=== PATIENT | female | born 1925 | race Caucasian/White ===

== ENCOUNTER 2017-05-05 20:48 | Emergency (ER) | payer OTHER ==
[~2017-05-05] VITALS: Ht 172.7 cm; Wt 62.0 kg
[~2017-05-05 20:48] MED LIST: AMLO2.5T PO; ASPEC81 PO; CLC100 PO; CLOP1TAB15 PO; DYZ PO; MRLP17 PO; POTA-327 PO; SIMV40TA2 PO; TRIA0.1C20; [UNRECOGNIZED DRUG - OTHER]
[2017-05-05 20:51] VITALS: TEMP 36.3; Ht 172.7 cm; Wt 62.0 kg
[2017-05-05 21:37] LABS: BASO % 0.3 %; BASO ABS # 0.02 K/uL (0-0.2); EOS % 0.9 %; EOS ABS # 0.06 K/uL (0-0.5); HEMATOCRIT 44.2 % (37-47); HEMOGLOBIN 14.5 g/dL (12.0-16.0); IG# 0.01 K/uL (0.00-0.02); LYMPH % 17.4 %; LYMPH ABS # 1.13 K/uL (1.2-3.4); MEAN CELL VOLUME 95.9 fL (80-100); MEAN CORPUSCULAR HEMOGLOBIN 31.5 pg (25-34); MEAN CORPUSCULAR HGB CONC 32.8 g/dl (32-36); MEAN PLATELET VOLUME 11.2 fL (7.4-10.4); MONO % 6.2 %; NEUT ABS # 4.87 K/uL (1.4-6.5); PLATELET COUNT 161 K/uL (130-400); RED CELL DISTRIBUTION WIDTH CV 14.1 % (11.5-14.5); RED CELL DISTRIBUTION WIDTH SD 49.3 fL (36.4-46.3); WHITE BLOOD COUNT 6.49 K/uL (4.8-10.8)
--- NOTE | 2017-05-05 21:41 | DIAGNOSTIC IMAGING REPORT ---
CT HEAD WITHOUT CONTRAST (CT) CLINICAL HISTORY: left foot numbness COMPARISON STUDY: No previous studies for comparison. TECHNIQUE: Axial CT of the brain is performed from the vertex to the skull base. IV contrast was not administered for this examination. A dose lowering technique was utilized adhering to the principles of ALARA. CT DOSE: 709.48 mGy.cm FINDINGS: No intra or extra-axial mass lesions are visualized. There is no CT evidence of acute cortical infarction. There is no evidence of midline shift. There is no acute hemorrhage. No calvarial fractures are visualized. There are minor white matter hypodensities likely on a small vessel basis. There is no evidence of pathologic ventricular dilatation. There is a left maxillary sinus air-fluid level. There are multiple opacified left-sided ethmoid air cells. There is mild mucosal disease in the left frontal sinus. There is mild mucosal thickening within the sphenoid. IMPRESSION: 1. Inflammatory changes within the paranasal sinuses with a left maxillary sinus air-fluid level and partial opacification left ethmoid. 2. Otherwise no acute intracranial findings Electronically signed by: Jeff Galvan M.D. 05/05/2017 9:39 PM Dictated Date/Time: 05/05/2017 9:38 PM
--- NOTE | 2017-05-05 21:46 | EMERGENCY ROOM VISIT NOTE ---
History Report prepared by Shalonda: Krystle Painting Under the Supervision of: Dr. Simba Siddiqi M.D. First contact with patient: 21:01 Chief Complaint: FOOT PAIN Stated Complaint: NO FEELING IN LT FOOT History of Present Illness The patient is an 89 year old female who presents to the Emergency Room with complaints of persistent left leg pain starting 1 hour ago. According to the patient's son, she started complaining of left calf and ankle pain around 1 hour ago. She also reports numbness in her left foot and toes. She has never had problems like this before. The patient was able to go out shopping with her son yesterday. She denies any chest pain, SOB, or fever. She was recently treated for shingles. She does not have a history of atrial fibrillation or diabetes. She has a history of dementia. Source of History: patient, family Onset: 1 hour ago Position: leg (left) Quality: other (pain) Timing: other (persistent) Associated Symptoms: + numbness, No fevers, No chest pain, No SOB Review of Systems See HPI for pertinent positives & negatives. A total of 10 systems reviewed and were otherwise negative. Past Medical & Surgical Medical Problems: (1) Dementia Old medical records were reviewed. Nurse's notes were reviewed and I agree with. Family History Noncontributory secondary to age. Social History Smoking Status: Never Smoker Marital Status: Occupation Status: retired Current/Historical Medications No Active Prescriptions or Reported Meds Allergies Coded Allergies: Amitriptyline (Verified Allergy, Unknown, VISUAL [employer]URBANCES, 05/05/17) Aspirin (Verified Allergy, Unknown, 12/05/09) NSAIDs (Verified Allergy, Unknown, unknown, 05/06/17) Physical Exam Vital Signs Date Time Temp Pulse Resp B/P (MAP) Pulse Ox O2 Delivery O2 Flow Rate FiO2 05/06/17 00:28 117 18 86/80 90 Room Air 05/05/17 23:55 104 20 134/97 91 Room Air 05/05/17 23:11 99 20 152/87 93 Room Air 05/05/17 21:27 94 Room Air 05/05/17 21:25 105 20 139/88 94 Room Air 05/05/17 21:07 124 05/05/17 20:51 36.3 107 18 163/72 97 Room Air Physical Exam General: Older female who has baseline dementia, hard of hearing, complaining of left foot pain. HEENT: Normal cephalic atraumatic. Pupils are equal round and reactive to light. Extraocular movements are intact. Oropharynx is pink with moist mucous membranes. No swelling of the mouth lips or tongue. Neck: Supple with a midline trachea. No meningeal signs or stiffness, no JVD or bruits. No Stridor. Chest: Clear to auscultation bilaterally. No wheezes or rhonchi. No increased work of breathing. Heart: Frequent ectopy with bigeminy seen on the monitor. Abdomen: Soft nontender, nondistended without rebound guarding or rigidity. Extremities: Mild left calf tenderness. No swelling. Left foot feels cooler than the right. There is a palpable pulse, but questionably diminished. Normal motor and sensation except for tingling in the left foot. Spine/Back. Non tender to palpation. No CVA tenderness Skin: Good turgor without rashes. Neurologic exam: Cranial nerves two through 12 are intact. Motor and sensation are intact and symmetrical throughout. Medical Decision & Procedures ER Provider Diagnostic Interpretation: Radiology results as stated below per my review and radiologist interpretation: CT HEAD WITHOUT CONTRAST (CT) CLINICAL HISTORY: left foot numbness COMPARISON STUDY: No previous studies for comparison. TECHNIQUE: Axial CT of the brain is performed from the vertex to the skull base. IV contrast was not administered for this examination. A dose lowering technique was utilized adhering to the principles of ALARA. CT DOSE: 709.48 mGy.cm FINDINGS: No intra or extra-axial mass lesions are visualized. There is no CT evidence of acute cortical infarction. There is no evidence of midline shift. There is no acute hemorrhage. No calvarial fractures are visualized. There are minor white matter hypodensities likely on a small vessel basis. There is no evidence of pathologic ventricular dilatation. There is a left maxillary sinus air-fluid level. There are multiple opacified left-sided ethmoid air cells. There is mild mucosal disease in the left frontal sinus. There is mild mucosal thickening within the sphenoid. IMPRESSION: 1. Inflammatory changes within the paranasal sinuses with a left maxillary sinus air-fluid level and partial opacification left ethmoid. 2. Otherwise no acute intracranial findings Electronically signed by: Jeff Galvan M.D. 05/05/2017 9:39 PM Dictated Date/Time: 05/05/2017 9:38 PM L ART DOP DUPLEX LWR EXT UNI CLINICAL HISTORY: Left leg pain COMPARISON STUDY: No previous studies for comparison. FINDINGS: No flow is visualized in left common femoral or profunda arteries. There is no flow within the superficial femoral artery. There is no flow visualized within the popliteal artery. A prominent popliteal artery thrombus was visualized. No flow is visualized in the posterior tibial peroneal or anterior tibial arteries. IMPRESSION: No arterial flow is visualized within the left lower extremity, a finding consistent with acute arterial occlusion. Electronically signed by: Jeff Galvan M.D. 05/05/2017 11:01 PM Dictated Date/Time: 05/05/2017 10:59 PM ULTRASOUND L VENOUS DOPP LOWER EXT UNILAT CLINICAL HISTORY: Left leg pain and swelling. COMPARISON STUDY: No previous studies for comparison. FINDINGS: No thrombus is visualized in left common femoral or superficial femoral vein. There is no thrombus within the left popliteal vein. There is a noncompressible left peroneal vein consistent with peroneal vein DVT. There is also thrombus within a popliteal fossa vein possibly a sural branch. IMPRESSION: 1. Acute calf DVT involving the peroneal vein 2. Thrombus is also visualized within a superficial vein within the popliteal fossa Electronically signed by: Jeff Galvan M.D. 05/05/2017 10:45 PM Dictated Date/Time: 05/05/2017 10:42 PM Laboratory Results 05/05/17 21:20 Red Blood Count 4.61, Mean Corpuscular Volume 95.9, Mean Corpuscular Hemoglobin 31.5, Mean Corpuscular Hemoglobin Concent 32.8, Mean Platelet Volume 11.2, Neutrophils (%) (Auto) 75.0, Lymphocytes (%) (Auto) 17.4, Monocytes (%) (Auto) 6.2, Eosinophils (%) (Auto) 0.9, Basophils (%) (Auto) 0.3, Neutrophils # (Auto) 4.87, Lymphocytes # (Auto) 1.13, Monocytes # (Auto) 0.40, Eosinophils # (Auto) 0.06, Basophils # (Auto) 0.02 05/05/17 21:20 Test 05/05/17 21:20 05/05/17 21:33 White Blood Count 6.49 K/uL (4.8-10.8) Red Blood Count 4.61 M/uL (4.2-5.4) Hemoglobin 14.5 g/dL (12.0-16.0) Hematocrit 44.2 % (37-47) Mean Corpuscular Volume 95.9 fL (80-100) Mean Corpuscular Hemoglobin 31.5 pg (25-34) Mean Corpuscular Hemoglobin Concent 32.8 g/dl (32-36) Platelet Count 161 K/uL (130-400) Mean Platelet Volume 11.2 fL (7.4-10.4) Neutrophils (%) (Auto) 75.0 % Lymphocytes (%) (Auto) 17.4 % Monocytes (%) (Auto) 6.2 % Eosinophils (%) (Auto) 0.9 % Basophils (%) (Auto) 0.3 % Neutrophils # (Auto) 4.87 K/uL (1.4-6.5) Lymphocytes # (Auto) 1.13 K/uL (1.2-3.4) Monocytes # (Auto) 0.40 K/uL (0.11-0.59) Eosinophils # (Auto) 0.06 K/uL (0-0.5) Basophils # (Auto) 0.02 K/uL (0-0.2) RDW Standard Deviation 49.3 fL (36.4-46.3) RDW Coefficient of Variation 14.1 % (11.5-14.5) Immature Granulocyte % (Auto) 0.2 % Immature Granulocyte # (Auto) 0.01 K/uL (0.00-0.02) Prothrombin Time 11.1 SECONDS (9.0-12.0) Prothromb Time International Ratio 1.1 (0.9-1.1) Activated Partial Thromboplast Time 23.2 SECONDS (21.0-31.0) Partial Thromboplastin Ratio 0.9 Anion Gap 9.0 mmol/L (3-11) Est Creatinine Clear Calc Drug Dose 27.4 ml/min Estimated GFR () 39.9 Estimated GFR (Non- 34.4 BUN/Creatinine Ratio 17.0 (10-20) Calcium Level 8.4 mg/dl (8.5-10.1) Total Bilirubin 1.0 mg/dl (0.2-1) Direct Bilirubin 0.2 mg/dl (0-0.2) Aspartate Amino Transf (AST/SGOT) 26 U/L (15-37) Alanine Aminotransferase (ALT/SGPT) 28 U/L (12-78) Alkaline Phosphatase 76 U/L (45-117) Total Protein 6.9 gm/dl (6.4-8.2) Albumin 3.3 gm/dl (3.4-5.0) Lipase 216 U/L (73-393) Bedside Troponin I < 0.030 ng/ml (0-0.045) Laboratory studies as stated above per my review. Medications Administered Medications (Trade) Dose Ordered Sig/Adeel Route Start Time Stop Time Status Last Admin Dose Admin Heparin Sodium/ Dextrose 1 ea NOW STAT N/A 05/05/17 23:31 05/05/17 23:32 DC 05/05/17 23:31 1 EA Heparin Sodium (Porcine) (Heparin Sq 5000 Unit/0.5ml) 5,000 unit STK-MED ONCE .ROUTE 05/05/17 23:39 05/05/17 23:40 DC 05/05/17 23:50 5,000 UNIT Heparin Sodium/ Dextrose (Heparin 25,000 Unit/500ml D5W) 25,000 unit STK-MED ONCE .ROUTE 05/05/17 23:39 05/05/17 23:40 DC 05/05/17 23:51 25,000 UNIT Ondansetron HCl (Zofran Inj) 4 mg NOW STAT IV 05/05/17 23:41 05/05/17 23:50 DC 05/05/17 23:49 4 MG Morphine Sulfate (MoRPHine SULFATE INJ) 2 mg NOW STAT IV 05/05/17 23:41 05/05/17 23:50 DC 05/05/17 23:50 2 MG Morphine Sulfate (MoRPHine SULFATE INJ) 2 mg NOW STAT IV 05/06/17 00:20 05/06/17 00:21 DC 05/06/17 00:26 2 MG ECG Indication: palpitations Rate (beats per minute): 118 Rhythm: normal sinus Findings: PVC, other (frequent ectopy and bigeminy, poor baseline, wide QRS complex, no ST segment elevation) Comparison ECG Date: no prior available ED Course 2101: Past medical records reviewed. The patient was evaluated in room C8, and a complete history and physical examination were performed. 2135: The patient is at imaging. 2303: I reevaluated the patient. I discussed the results with her and her sons. 2311: I discussed the patient's case with Dr. Lynn, [facility] vascular surgery. He is not available and recommends transfer. 2313: I reevaluated the patient. I updated her family on the plan. 2326: I discussed the patient's case with Dr. Colbert, [facility] [place]. He has accepted the patient for transfer to the ED by ambulance. He recommends starting heparin. 2331: Heparin Sodium/Dextrose IV. 2340: I reevaluated the patient. I discussed the results with her family. They verbalized agreement of the plan. She will be transferred to [facility] [place] for further evaluation and management. 2341: Morphine Sulfate 2 mg IV, Zofran Inj 4 mg IV. 0020: The ambulance will be at least 2 hours. We will try to arrange for her to fly. Medical Decision Differentials include, but are not limited to; arterial insufficiency, venous insufficiency, cardiac disease, electrolyte or metabolic abnormality. This patient comes in as described above she is difficult to evaluate due to dementia. She's complained of foot pain. On exam, I'm concerned that it does feel slightly cooler than the other foot and may have slight discoloration. She has no swelling. She does complain numbness in the toe most of the great toe. I did arterial and venous ultrasound as well as a CAT scan had multiple blood testing. She does have frequent ectopy bigeminy and possibly A. fib seen on the monitor. She was given IV morphine and IV Zofran for pain. Her arterial ultrasound does show arterial occlusion of left lower extremity with no flow. Her ultrasound also shows a peroneal DVT. I discussed the seriousness of this with the family. I called Dr. Lynn however he is unavailable and not in town. In light of this, I called and talked to Dr. Colbert from [facility] and he is a vascular surgeon and he does want me to start her on a weight based IV heparin bolus and IV drip. The patient does not have any contraindications to heparin at this point no recent surgery or trauma or bleeding. He wants me to send her by [facility] ER and he will determine if she is a surgical candidate or not. The family is in agreement with the plan does consent to transfer. She will be transferred emergently to [facility] for further treatment of her arterial insufficient leg. I did try to get indolence transfer however it was going to beat 2 hours until we got an ambulance here not including the extra travel time. In light of this , I do think it is prudent to fly her. Her leg looks considerably more pale and she has a lot of discomfort. I called the transfer center and they've arranged for [facility] . the family's agreement with the plan Medication Reconcilliation Current Medication List: was personally reviewed by me Blood Pressure Screening Patient's blood pressure: Elevated blood pressure Blood pressure disposition: Elevated BP felt to be situational Consults Time Called: [phone] Consulting Physician: Dr. Lynn, [facility] vascular surgery Returned Call: [phone] I discussed the patient's case with him. He is not available and recommends transfer. Additional Consults: Time Called: 2314 Consulted Physician: Dr. Colbert, [facility] [place] vascular surgery Returned Call: [phone] Additional Comments: I discussed the patient's case with him. He has accepted the patient for transfer to the ED by ambulance. He recommends starting heparin. Impression Primary Impression: Arterial occlusion, lower extremity Additional Impressions: Deep vein thrombosis (DVT) of left lower extremity Atrial fibrillation Critical Care I have personally spent greater than 30 minutes of critical care time in the direct management of this patient. This includes bedside care, interpretation of diagnostic studies, and testing, discussion with consultants, patient, and family members, and other required patient management activities. This 30 minutes is in excess of all separately billable procedures. Scribe Attestation The scribe's documentation has been prepared under my direction and personally reviewed by me in its entirety. I confirm that the note above accurately reflects all work, treatment, procedures, and medical decision making performed by me. Departure Information Dispostion Transfer Acute Care Facility Prescriptions No Active Prescriptions or Reported Meds Referrals No Doctor, Assigned (PCP) Patient Instructions My [facility] Problem Qualifiers
[2017-05-05 21:47] LABS: INR 1.1 (0.9-1.1); PTT PATIENT 23.2 SECONDS (21.0-31.0)
[2017-05-05 21:59] LABS: ALBUMIN 3.3 gm/dl (3.4-5.0); CALCIUM 8.4 mg/dl (8.5-10.1); CREATININE 1.36 mg/dl (0.60-1.20); POTASSIUM 4.6 mmol/L (3.5-5.1)
[2017-05-05 22:02] LABS: TOTAL PROTEIN 6.9 gm/dl (6.4-8.2)
--- NOTE | 2017-05-05 22:46 | DIAGNOSTIC IMAGING REPORT ---
ULTRASOUND L VENOUS DOPP LOWER EXT UNILAT CLINICAL HISTORY: Left leg pain and swelling. COMPARISON STUDY: No previous studies for comparison. FINDINGS: No thrombus is visualized in left common femoral or superficial femoral vein. There is no thrombus within the left popliteal vein. There is a noncompressible left peroneal vein consistent with peroneal vein DVT. There is also thrombus within a popliteal fossa vein possibly a sural branch. IMPRESSION: 1. Acute calf DVT involving the peroneal vein 2. Thrombus is also visualized within a superficial vein within the popliteal fossa Electronically signed by: Jeff Galvan M.D. 05/05/2017 10:45 PM Dictated Date/Time: 05/05/2017 10:42 PM
--- NOTE | 2017-05-05 23:02 | DIAGNOSTIC IMAGING REPORT ---
L ART DOP DUPLEX LWR EXT UNI CLINICAL HISTORY: Left leg pain COMPARISON STUDY: No previous studies for comparison. FINDINGS: No flow is visualized in left common femoral or profunda arteries. There is no flow within the superficial femoral artery. There is no flow visualized within the popliteal artery. A prominent popliteal artery thrombus was visualized. No flow is visualized in the posterior tibial peroneal or anterior tibial arteries. IMPRESSION: No arterial flow is visualized within the left lower extremity, a finding consistent with acute arterial occlusion. Electronically signed by: Jeff Galvan M.D. 05/05/2017 11:01 PM Dictated Date/Time: 05/05/2017 10:59 PM
[2017-05-05] MEDS ORDERED: HEPARIN 25000 UNIT/500 ML D5W ONE (23:39)
[2017-05-05] MEDS ORDERED: HEPARIN SOD 5000 UNIT/0.5 ML CARP ONE (23:39)
[2017-05-05] MEDS ORDERED: ONDANSETRON INJ 2 MG/ML 2 ML VIAL IV STA (23:41)
[2017-05-05] MEDS ORDERED: MoRPHine SULFATE 2 MG/ML CARP IV STA (23:41)
[2017-05-06] MEDS ORDERED: MoRPHine SULFATE 2 MG/ML CARP IV STA (00:20)
[2017-05-06 00:44] VITALS: BP 144/82; PULSE 101; O2SAT 90
[2017-05-06 00:49] VITALS: O2SAT 95
== END 2017-05-06 01:10 | disposition short-term general hospital (02) ==
LOC: C.EDB 20:49 → C.EDC 05-06 01:10
DX: I74.3 Embolism and thrombosis of arteries of the lower extremities (principal); I82.402 Acute embolism and thrombosis of unspecified deep veins of left lower extremity; I48.91 Unspecified atrial fibrillation; F03.90 Unspecified dementia, unspecified severity, without behavioral disturbance, psychotic disturbance, mood disturbance, and anxiety

== ENCOUNTER → 2017-05-14 | Outpatient (CLI) | payer OTHER ==
[2017-05-14 11:54] LABS: INR 2.2 (0.9-1.1)
== END | disposition home or self-care (01) ==
LOC: C.LABCC 09:47
PROVIDERS: ATTEND Internal Medicine
DX: I48.91 Unspecified atrial fibrillation (principal); I82.402 Acute embolism and thrombosis of unspecified deep veins of left lower extremity

== ENCOUNTER → 2017-05-22 | Outpatient (CLI) | payer OTHER | END | disposition home or self-care (01) | LOC: C.LABCC 07:55 | PROVIDERS: ATTEND Internal Medicine | DX: T81.89XA Other complications of procedures, not elsewhere classified, initial encounter (principal); Y84.9 Medical procedure, unspecified as the cause of abnormal reaction of the patient, or of later complication, without mention of misadventure at the time of the procedure ==

== ENCOUNTER → 2017-05-23 | Outpatient (CLI) | payer OTHER ==
[2017-05-23 10:27] LABS: INR 1.2 (0.9-1.1)
== END ==
LOC: C.LABCC 08:36
PROVIDERS: ATTEND Internal Medicine
DX: I48.91 Unspecified atrial fibrillation (principal)

== ENCOUNTER 2017-05-28 10:21 | Emergency (ER) | payer OTHER ==
[~2017-05-28] VITALS: Ht 170.2 cm; Wt 63.5 kg
[2017-05-28 10:30] VITALS: TEMP 37; Ht 170.2 cm; Wt 63.5 kg
--- NOTE | 2017-05-28 11:01 | EMERGENCY ROOM VISIT NOTE ---
History Report prepared by Shalonda: Christa Bruce Under the Supervision of: Dr. Tanner Navarrete M.D. First contact with patient: 10:42 Chief Complaint: LEG PAIN,LEG INJURY Stated Complaint: LEG PAIN History of Present Illness The patient is a 89 year old female who presents to the Emergency Room with complaints of constant left leg numbness beginning this morning. The patient comes from [facility]. The patient has a history of thrombosis in her left leg with an arterial revascularization on 05/16/17. The patient's procedure was done in [place]. The patient reports her leg is cool to touch and more swollen than normal. She denies any pain to her leg. Source of History: patient Onset: this morning Position: leg (left) Quality: numbness Timing: constant Associated Symptoms: + numbness Review of Systems See HPI for pertinent positives & negatives. A total of 10 systems reviewed and were otherwise negative. Past Medical & Surgical Medical Problems: (1) Dementia Social History Smoking Status: Never Smoker Marital Status: Housing Status: skilled nursing Occupation Status: retired Current/Historical Medications Scheduled Metoprolol Tartrate (Lopressor) (Lopressor), 12.5 MG PO Q12 Omeprazole (Prilosec), 20 MG PO DAILY Warfarin Sodium (Coumadin), 3 MG PO ONE TIME Scheduled PRN Acetaminophen Tab (Tylenol), 650 MG PO Q6 PRN for Pain or Fever Docusate Sodium (Colace), 100 MG PO Q12 PRN for Constipation Oxycodone/Acetaminophen 5MG/325MG (Percocet 5MG/325MG), 1 TABLET PO Q4H PRN for Pain Allergies Coded Allergies: Amitriptyline (Verified Allergy, Unknown, VISUAL DISTURBANCES, 05/28/17) Aspirin (Verified Allergy, Unknown, 05/28/17) NSAIDs (Verified Allergy, Unknown, unknown, 05/28/17) Physical Exam Vital Signs Date Time Temp Pulse Resp B/P (MAP) Pulse Ox O2 Delivery O2 Flow Rate FiO2 05/28/17 15:51 89 18 134/79 96 Room Air 05/28/17 14:58 81 18 144/84 96 Room Air 05/28/17 13:46 80 18 135/87 05/28/17 13:46 77 05/28/17 12:05 86 18 112/74 98 Room Air 05/28/17 10:38 89 05/28/17 10:30 37.0 90 18 131/64 98 Room Air Physical Exam GENERAL: Patient is in no acute distress. HEENT: No acute trauma, normocephalic atraumatic, mucous membranes moist, no nasal congestion, no scleral icterus. NECK: No stridor, no adenopathy, no meningismus, trachea is midline. LUNGS: Clear to auscultation bilaterally, no wheeze, no rhonchi, breath sounds equal. HEART: 2/6 systolic murmur with an occasional extra beat, normal rate. ABDOMEN: Soft, nontender, bowel sounds positive, no hernias, no peritonitis. EXTREMITIES: Healing surgical wound to left groin and left medial calf, no cellulitis, left foot is cool, right foot is warm, left foot has very slow capillary refill at the toes. Normal motor function of the toes on the left. NEUROLOGIC: Oriented x 3, no acute motor or sensory deficits, no focal weakness. SKIN: No rash, no jaundice, no diaphoresis. Medical Decision & Procedures ER Provider Diagnostic Interpretation: Radiology results as stated below per my review and radiologist interpretation: LEFT LOWER EXTREMITY VENOUS DOPPLER FINDINGS: No change in the thrombosed superficial vein within the left popliteal fossa. There is also persistent thrombus within the left peroneal vein, unchanged. No additional sites of thrombus identified within the left lower extremity deep venous systems. IMPRESSION: 1. No change compared to the prior study. 2. Left peroneal vein thrombosis persists. 3. Thrombosed superficial vein within the left popliteal fossa is again noted. Electronically signed by: Jakub Islas M.D. DOPPLER ULTRASOUND LEFT LOWER EXTREMITY ARTERIAL FINDINGS: No flow is identified from the left common femoral artery through the [id number] left superficial femoral artery. There is minimal focal reconstitution in the distal left superficial femoral artery with thready flow. Velocities within the distal superficial femoral artery measure up to 6 cm/s and the arterial waveform is monophasic. There is monophasic flow within the popliteal artery with velocities measuring up to 7 cm/s. Thready flow was seen within the posterior tibial artery with velocities measuring up to 12 cm/s. No flow was identified within the peroneal artery. There was thready flow throughout the anterior tibial artery with velocities measuring up to 9 cm/s. The dorsalis pedis artery was patent with velocities measuring up to 9 cm/s. IMPRESSION: 1. There was no flow identified in the common femoral and the majority of the superficial femoral artery. 2. There was reconstitution with thready flow seen within the distal superficial femoral artery and the popliteal artery. This demonstrates markedly blunted arterial waveforms. 3. There was thready flow identified within the anterior and posterior tibial arteries. The dorsalis pedis artery is patent. Dictated: 05/28/2017 1:17 PM Transcribed: 05/28/2017 1:44 PM Sandra Electronically signed by: Tanner Krishnamurthy M.D. Laboratory Results 05/28/17 11:20 Red Blood Count 3.99, Mean Corpuscular Volume 96.2, Mean Corpuscular Hemoglobin 31.1, Mean Corpuscular Hemoglobin Concent 32.3, Mean Platelet Volume 10.6, Neutrophils (%) (Auto) 67.4, Lymphocytes (%) (Auto) 21.7, Monocytes (%) (Auto) 9.4, Eosinophils (%) (Auto) 1.0, Basophils (%) (Auto) 0.3, Neutrophils # (Auto) 4.00, Lymphocytes # (Auto) 1.29, Monocytes # (Auto) 0.56, Eosinophils # (Auto) 0.06, Basophils # (Auto) 0.02 05/28/17 11:20 Test 05/28/17 11:20 White Blood Count 5.94 K/uL (4.8-10.8) Red Blood Count 3.99 M/uL (4.2-5.4) Hemoglobin 12.4 g/dL (12.0-16.0) Hematocrit 38.4 % (37-47) Mean Corpuscular Volume 96.2 fL (80-100) Mean Corpuscular Hemoglobin 31.1 pg (25-34) Mean Corpuscular Hemoglobin Concent 32.3 g/dl (32-36) Platelet Count 181 K/uL (130-400) Mean Platelet Volume 10.6 fL (7.4-10.4) Neutrophils (%) (Auto) 67.4 % Lymphocytes (%) (Auto) 21.7 % Monocytes (%) (Auto) 9.4 % Eosinophils (%) (Auto) 1.0 % Basophils (%) (Auto) 0.3 % Neutrophils # (Auto) 4.00 K/uL (1.4-6.5) Lymphocytes # (Auto) 1.29 K/uL (1.2-3.4) Monocytes # (Auto) 0.56 K/uL (0.11-0.59) Eosinophils # (Auto) 0.06 K/uL (0-0.5) Basophils # (Auto) 0.02 K/uL (0-0.2) RDW Standard Deviation 48.9 fL (36.4-46.3) RDW Coefficient of Variation 13.9 % (11.5-14.5) Immature Granulocyte % (Auto) 0.2 % Immature Granulocyte # (Auto) 0.01 K/uL (0.00-0.02) Prothrombin Time 12.1 SECONDS (9.0-12.0) Prothromb Time International Ratio 1.2 (0.9-1.1) Activated Partial Thromboplast Time 23.3 SECONDS (21.0-31.0) Partial Thromboplastin Ratio 0.9 Anion Gap 7.0 mmol/L (3-11) Est Creatinine Clear Calc Drug Dose 36.0 ml/min Estimated GFR () 55.8 Estimated GFR (Non- 48.2 BUN/Creatinine Ratio 16.4 (10-20) Calcium Level 8.5 mg/dl (8.5-10.1) Laboratory results reviewed by me. Medications Administered Medications (Trade) Dose Ordered Sig/Adeel Route Start Time Stop Time Status Last Admin Dose Admin Heparin Sodium/ Dextrose 500 ml @ 22 mls/hr [id number] PRN IV 05/28/17 14:45 06/27/17 14:44 05/28/17 14:56 22 MLS/HR Heparin Sodium (Porcine) (Heparin Sq 5000 Unit/0.5ml) 5,000 unit STK-MED ONCE .ROUTE 05/28/17 14:46 05/28/17 14:47 DC 05/28/17 14:57 5,000 UNIT Ondansetron HCl (Zofran Inj) 4 mg STK-MED ONCE .ROUTE 05/28/17 15:31 05/28/17 15:32 DC 05/28/17 15:34 4 MG ED Course 1050: The patient was evaluated in room C3. A complete history and physical exam was performed. 1405: I updated the patient on her test results. 1411: Discussed the patient's case with Dr. Meléndez Vascular Surgery. He recommends sending the patient to [facility] where she had her initial procedure done. 1422: Discussed the patient's case Dr. Zita Gomez-Vascular Surgery. He preformed the patient's procedure. He will work on getting the patient accepted for transfer. He recommends starting the patient on heparin. 1433: Ordered Heparin Sodium (Porcine) 5000 unit IV. 1442: Discussed the patient's case with Dr. Hao Gomez-Vascular Surgery. He will accept the patient for transfer once a bed opens up. 1445: Ordered Heparin Sodium/Dextrose 500 ml @ 22 mls/hr IV. 1531: Ordered Zofran Inj 4 mg IV 1715: The patient will be transferred to [place]. Medical Decision Differential diagnoses include: arterial or venous clot, infection, limb ischemia, DVT. There is no leukocytosis or concerning anemia. No significant electrolyte abnormality or kidney failure. INR is subtherapeutic at 1.2. Venous ultrasound shows a chronic clot as the ultrasound is unchanged compared to previous. Arterial ultrasound demonstrates significantly decreased arterial flow in the left lower extremity. The patient did not require anything for pain. She did become nauseated though during her stay in the ER. She was given IV Zofran. I spoke with our vascular service at this hospital, transfer was recommended. I discussed the case with the patient's vascular surgical service at [facility] in [place]. They recommended IV heparin. The IV heparin was given as a bolus and then the patient was placed on a heparin drip. The papers for transfer were completed. The patient is resting comfortably. She has minimal to no pain. She is moving her toes and foot normally. Her left foot and leg are cool to the touch. Based on her presentation and findings, she likely has developed a new clot in the left lower extremity arterial system. Medication Reconcilliation Current Medication List: was personally reviewed by me Blood Pressure Screening Patient's blood pressure: Elevated blood pressure Blood pressure disposition: Elevated BP felt to be situational Consults Time Called: 1408 Consulting Physician: Dr. Meléndez Vascular Surgery Returned Call: 1411 Discussed the patient's case with Dr. Meléndez Vascular Surgery. He recommends sending the patient to [facility] where she had her initial procedure done. Additional Consults: Time Called: 1420 Consulted Physician: Dr. Anjel Gomez Vascular Surgery Returned Call: 1422 Additional Comments: Discussed the patient's case Dr. Zita Gomez-Vascular Marek. He preformed the patient's procedure. He will work on getting the patient accepted for transfer. He recommends starting the patient on heparin. Time Called: 1425 Consulted Physician: Dr. Hao Gomez-Vascular Surgery Returned Call: 1449 Additional Comments: Discussed the patient's case with Dr. Hao Jara. He will accept the patient for transfer once a bed opens up. Impression Primary Impression: Ischemia of left lower extremity Scribe Attestation The scribe's documentation has been prepared under my direction and personally reviewed by me in its entirety. I confirm that the note above accurately reflects all work, treatment, procedures, and medical decision making performed by me. Departure Information Dispostion Transfer Acute Care Facility Referrals [facility] (PCP) Patient Instructions My [facility]
[2017-05-28 11:39] LABS: BASO % 0.3 %; BASO ABS # 0.02 K/uL (0-0.2); EOS ABS # 0.06 K/uL (0-0.5); HEMATOCRIT 38.4 % (37-47); HEMOGLOBIN 12.4 g/dL (12.0-16.0); IG# 0.01 K/uL (0.00-0.02); LYMPH % 21.7 %; LYMPH ABS # 1.29 K/uL (1.2-3.4); MEAN CELL VOLUME 96.2 fL (80-100); MEAN CORPUSCULAR HEMOGLOBIN 31.1 pg (25-34); MEAN CORPUSCULAR HGB CONC 32.3 g/dl (32-36); MEAN PLATELET VOLUME 10.6 fL (7.4-10.4); MONO % 9.4 %; MONO ABS # 0.56 K/uL (0.11-0.59); NEUT % 67.4 %; PLATELET COUNT 181 K/uL (130-400); RED CELL DISTRIBUTION WIDTH CV 13.9 % (11.5-14.5); RED CELL DISTRIBUTION WIDTH SD 48.9 fL (36.4-46.3); WHITE BLOOD COUNT 5.94 K/uL (4.8-10.8)
[2017-05-28 11:50] LABS: INR 1.2 (0.9-1.1); PTT PATIENT 23.3 SECONDS (21.0-31.0)
[2017-05-28 12:03] LABS: CALCIUM 8.5 mg/dl (8.5-10.1); CREATININE 1.03 mg/dl (0.60-1.20)
[2017-05-28] MEDS ORDERED: ACET325T96 PO (12:13)
[2017-05-28] MEDS ORDERED: DOCU-94 PO (12:13)
[2017-05-28] MEDS ORDERED: OXYC-57 PO (12:13)
[2017-05-28] MEDS ORDERED: WARF3TAB PO (12:13)
[2017-05-28] MEDS ORDERED: PRLSR20 PO (12:13)
[2017-05-28] MEDS ORDERED: METO25TA56 PO (12:13)
--- NOTE | 2017-05-28 13:21 | DIAGNOSTIC IMAGING REPORT ---
LEFT LOWER EXTREMITY VENOUS DOPPLER HISTORY: cool swollen leg COMPARISON STUDY: Left leg venous doppler 05/05/2017. FINDINGS: No change in the thrombosed superficial vein within the left popliteal fossa. There is also persistent thrombus within the left peroneal vein, unchanged. No additional sites of thrombus identified within the left lower extremity deep venous systems. IMPRESSION: 1. No change compared to the prior study. 2. Left peroneal vein thrombosis persists. 3. Thrombosed superficial vein within the left popliteal fossa is again noted. Electronically signed by: Jakub Islas M.D. 05/28/2017 1:19 PM Dictated Date/Time: 05/28/2017 1:16 PM
--- NOTE | 2017-05-28 13:45 | DIAGNOSTIC IMAGING REPORT ---
DOPPLER ULTRASOUND LEFT LOWER EXTREMITY ARTERIAL CLINICAL HISTORY: Cold and edematous left lower extremity. COMPARISON STUDY: Left lower extremity arterial ultrasound dated 05/05/2017. TECHNIQUE: Real-time, grayscale, and color Doppler sonography of the left lower extremity arteries is attended from the inguinal crease to the foot. Ankle-brachial indices were not assessed due to deep venous thrombosis. A dressing in the left groin degrades assessment. FINDINGS: No flow is identified from the left common femoral artery through the [id number] left superficial femoral artery. There is minimal focal reconstitution in the distal left superficial femoral artery with thready flow. Velocities within the distal superficial femoral artery measure up to 6 cm/s and the arterial waveform is monophasic. There is monophasic flow within the popliteal artery with velocities measuring up to 7 cm/s. Thready flow was seen within the posterior tibial artery with velocities measuring up to 12 cm/s. No flow was identified within the peroneal artery. There was thready flow throughout the anterior tibial artery with velocities measuring up to 9 cm/s. The dorsalis pedis artery was patent with velocities measuring up to 9 cm/s. IMPRESSION: 1. There was no flow identified in the common femoral and the majority of the superficial femoral artery. 2. There was reconstitution with thready flow seen within the distal superficial femoral artery and the popliteal artery. This demonstrates markedly blunted arterial waveforms. 3. There was thready flow identified within the anterior and posterior tibial arteries. The dorsalis pedis artery is patent. Dictated: 05/28/2017 1:17 PM Transcribed: 05/28/2017 1:44 PM Sandra Electronically signed by: Tanner Krishnamurthy M.D. 05/28/2017 1:47 PM Dictated Date/Time: 05/28/2017 1:17 PM
[2017-05-28] MEDS ORDERED: HEPARIN SOD (PORCINE) 1000 UNIT/ML 10 ML VIAL IV STA (14:33)
[2017-05-28] MEDS ORDERED: HEPARIN 25,000 UNIT/500ML D5W 500 ML IV PRN (14:45)
[2017-05-28] MEDS ORDERED: HEPARIN SOD 5000 UNIT/0.5 ML CARP ONE (14:46)
[2017-05-28] MEDS ORDERED: ONDANSETRON INJ 2 MG/ML 2 ML VIAL ONE (15:31)
[2017-05-28 19:26] VITALS: BP 148/96
[2017-05-28 19:31] VITALS: PULSE 94; O2SAT 92
== END 2017-05-28 19:45 | disposition short-term general hospital (02) ==
LOC: EDBD 10:21 → C.EDC 10:22
DX: I99.8 Other disorder of circulatory system (principal); F03.90 Unspecified dementia, unspecified severity, without behavioral disturbance, psychotic disturbance, mood disturbance, and anxiety; Z79.01 Long term (current) use of anticoagulants

== ENCOUNTER → 2017-06-01 | Outpatient (CLI) | payer OTHER ==
[~2017-06-01] MED LIST changes: +ACET325T96 PO; -AMLO2.5T PO; -ASPEC81 PO; -CLC100 PO; -CLOP1TAB15 PO; +DOCU-94 PO; -DYZ PO; +METO25TA56 PO; -MRLP17 PO; +OXYC-57 PO; -POTA-327 PO; +PRLSR20 PO; -SIMV40TA2 PO; -TRIA0.1C20; +WARF3TAB PO; -[UNRECOGNIZED DRUG - OTHER]
[2017-06-01 08:54] LABS: INR 1.6 (0.9-1.1)
== END ==
LOC: C.LABCC 08:16
PROVIDERS: ATTEND Internal Medicine
DX: I82.409 Acute embolism and thrombosis of unspecified deep veins of unspecified lower extremity (principal)

== ENCOUNTER → 2017-06-04 | Outpatient (CLI) | payer OTHER ==
[2017-06-04 09:47] LABS: INR 3.6 (0.9-1.1)
== END ==
LOC: C.LABCC 08:57
PROVIDERS: ATTEND Internal Medicine
DX: I82.409 Acute embolism and thrombosis of unspecified deep veins of unspecified lower extremity (principal)

== ENCOUNTER → 2017-06-08 | Outpatient (CLI) | payer OTHER ==
[~2017-06-08] MED LIST changes: +ACET-1693 PO; -ACET325T96 PO
[2017-06-08 08:42] LABS: INR 2.1 (0.9-1.1)
== END ==
LOC: C.LABCC 08:11
PROVIDERS: ATTEND Internal Medicine
DX: I82.409 Acute embolism and thrombosis of unspecified deep veins of unspecified lower extremity (principal)